=== PATIENT | female | born 1950 | race African-American/Black ===

== ENCOUNTER 2018-09-26 02:24 | Inpatient (IN) ==
--- NOTE | 2018-09-18 09:28 | EKG Report ---
Test Performed on : 09/18/2018 09:20:03 AM Test Reason : PAT Blood Pressure : / mmHG Vent. Rate : 052 BPM Atrial Rate : 052 BPM P-R Int : 218 ms QRS Dur : 082 ms QT Int : 440 ms P-R-T Axes : 055 000 060 degrees QTc Int : 409 ms Sinus bradycardia. with 1st degree AV block. Low voltage QRS Cannot rule out Anterior infarct , age undetermined Abnormal ECG When compared with ECG of 03-SEP-2015 09:50, SC interval has increased Unconfirmed Result
[2018-09-18 09:42] LABS: BASO# 0.01 X1000 (0.0-0.2); BASO% 0.2 % (0.0-0.8); EOS# 0.03 X1000 (0.0-0.7); EOS% 0.7 % (0.0-10.0); HEMATOCRIT 41.4 % (37.0-47.0); HEMOGLOBIN 13.3 g/dL (12.0-16.0); LYMPH# 1.26 X1000 (1.2-3.4); LYMPH% 30.2 % (20.5-51.1); MCH 27.2 PG (27-31); MCHC 32.1 g/dL (33-37); MCV 84.7 FL (81-99); MONO# 0.48 X1000 (0.11-0.59); MONO% 11.5 % (1.7-9.3); MPV 10.7 FL (7.4-10.4); NEUT# 2.39 X1000 (1.4-6.5); NEUT% 57.4 % (42.2-75.2); PLT 135 X1000 (130-400); RBC 4.89 XMIL (4.2-5.4); RDW 13.4 % (11.5-14.5); WBC 4.17 X1000 (4.8-10.8)
--- NOTE | 2018-09-18 09:53 | Diag Imaging Result Doc PS360 ---
EXAM: CHEST-2 VIEWS HISTORY: PAT TECHNIQUE: Chest two views COMPARISON: 09/03/2015 FINDINGS: The lungs are well expanded. The heart is not enlarged. The vessels are not distended. There are no infiltrates. No pleural effusions. IMPRESSION: No acute abnormality. Electronically signed by Bautista Lane 09/18/2018 9:50 AM
[2018-09-18 10:00] LABS: AGAP 8; ALB/GLOB RATIO 1.2; ALBUMIN 4.1 g/dL (3.5-5.0); ALKALINE PHOSPHATASE 84 U/L (32-104); BUN 13 mg/dL (8-22); CALCIUM 9.5 mg/dL (8.8-10.2); CHLORIDE 101 mmol/L (98-107); COSMO 280; CREATININE 0.9 mg/dL (0.5-0.9); ESTIMATED GFR > 60; GLUCOSE 147 mg/dL (70-104); GOT 22 U/L (10-30); GPT 29 U/L (10-36); POTASSIUM 4.1 mmol/L (3.5-5.1); SODIUM 139 mmol/L (136-145); TCO2 30 mmol/L (25-35); TOTAL PROTEIN 7.5 g/dL (6.3-8.3)
[2018-09-26] MEDS ORDERED: FENTANYL ONE (07:54)
[2018-09-26] MEDS ORDERED: DIPRIVAN 1% ONE (07:54)
[2018-09-26] MEDS ORDERED: QUELICIN (DOSE) ONE (07:55)
[2018-09-26] MEDS ORDERED: ROBINUL ONE ×2 (07:55→09:28)
[2018-09-26] MEDS ORDERED: XYLOCAINE-MPF 2% ONE (07:55)
[2018-09-26] MEDS ORDERED: LR 1,000 ML ONE (08:29)
[2018-09-26] MEDS ORDERED: ENTEREG ONE (08:29)
[2018-09-26] MEDS ORDERED: LOPRESSOR ONE (08:29)
[2018-09-26] MEDS ORDERED: VERSED ONE (08:40)
[2018-09-26] MEDS ORDERED: SODIUM CHLORIDE 0.9% 10 ML ONE (08:41)
[2018-09-26] MEDS ORDERED: MARCAINE 0.25% ONE (08:41)
[2018-09-26] MEDS ORDERED: EXPAREL 1.3% ONE (08:42)
[2018-09-26] MEDS ORDERED: MEFOXIN 1 GM/NS 1 GM/50 ML IVPB IV ONE (09:00)
[2018-09-26] MEDS ORDERED: FLAGYL 1000 MG/NS 1,000 MG/200 ML IVPB IV ONE (09:00)
[2018-09-26] MEDS ORDERED: ZOFRAN ONE (09:28)
[2018-09-26] MEDS ORDERED: NORCURON ONE (09:28)
[2018-09-26] MEDS ORDERED: STERILE WATER INJ. ONE (09:28)
[2018-09-26] MEDS ORDERED: NEOSTIGMINE ONE (09:33)
[2018-09-26] MEDS ORDERED: OFIRMEV 1000 MG/ISOTONIC SOLN 1,000 MG/100 ML BOTTLE ONE (09:39)
[2018-09-26] MEDS ORDERED: EPHEDRINE ONE (10:03)
[2018-09-26 10:07] LABS: URINE SOURCE CATH
[2018-09-26 10:14] LABS: BILIRUBIN URINE NEGATIVE (NEGATIVE); BLOOD URINE TRACE (NEGATIVE); COLOR YELLOW; GLUCOSE URINE NEGATIVE (NEGATIVE); KETONE URINE NEGATIVE (NEGATIVE); LEUKOCYTES URINE NEGATIVE (NEGATIVE); NITRITE URINE NEGATIVE (NEGATIVE); PH URINE 5.5; PROTEIN URINE NEGATIVE (NEGATIVE); SP GRAVITY URINE 1.015; TURBIDITY URINE HAZY (CLEAR); UR EPITHELIAL CELLS <10 /HPF (<10); URINE BACTERIA NEGATIVE /HPF; URINE RBC <10 /HPF (<10); URINE WBC <10 /HPF (<10); UROBILINOGEN URINE NORMAL (NORMAL)
[2018-09-26] MEDS: DILAUDID ONE ×2 (12:13→12:18)
[2018-09-26] MEDS ORDERED: ZOFRAN IV PRN (12:30)
[2018-09-26] MEDS ORDERED: BENADRYL IV PRN (12:30)
[2018-09-26] MEDS ORDERED: NARCAN 0.4 MG in LR 1,000 ML IV PRN (12:30)
[2018-09-26] MEDS ORDERED: NARCAN IV PRN (12:30)
[2018-09-26] MEDS ORDERED: SODIUM CHLORIDE 0.9% INJ PRN (12:30)
[2018-09-26] MEDS ORDERED: DILAUDID PCA VIAL IV PRN (12:30)
[2018-09-26] MEDS ORDERED: PHENERGAN IV PRN (12:30)
[2018-09-26] MEDS ORDERED: ATARAX PO PRN (12:30)
[2018-09-26] MEDS ORDERED: D5 1/2 NS 1,000 ML ONE (12:31)
--- NOTE | 2018-09-26 15:21 | OPERATIVE NOTE ---
PROCEDURE DATE: 09/26/2018 PREOPERATIVE DIAGNOSIS: Carcinoma of splenic flexure area. POSTOPERATIVE DIAGNOSIS: Carcinoma of hepatic flexure area. PROCEDURE: Exploratory laparotomy, adhesiolysis, mobilization of splenic flexure with subsequent finding of the tumor in the hepatic flexure area. Procedure is extended right colectomy with ileotransverse colostomy. DESCRIPTION OF PROCEDURE: The patient brought to the operating room. After satisfactory induction of IV and endotracheal anesthesia, athrombic TEDs, Landon catheter, and orogastric tubes were placed. Her abdomen was broadly prepped and draped in the appropriate manner for laparotomy. A midline xiphoid infraumbilical incision was taken sharply down through skin and subcutaneous tissue. The fascia was incised in the midline. The peritoneum was entered. Hemostasis was obtained by electrocautery. The viscera were packed medially away from the left side. The left colon was mobilized around the splenic flexure. There was a minimal amount of bleeding around the splenic flexure. Several of the short gastrics were ligated. There was no evidence of tattoo from the previous ink saurabh from the colon biopsy from several weeks ago. Proximal and distal exploration eventually showed the tattoo to be just distal to the hepatic flexure. The right colon was subsequently mobilized. There was a suspicious area just superior to the cecum. It was marked with a suture. The distal ileum was subsequently divided with a VANNESSA stapler. Mesenteric attachments were taken down with LigaSure instrument. The right colic vasculature was doubly tied with double 0 silk and suture ligated with 2-0 silk. The right colon was completely swept medially with exposure of the duodenum with no evidence of duodenal or pancreatic injury. The patient had previous cholecystectomy. Some of the adhesions in the gallbladder fossa were taken down sharply. The transverse colon was subsequently divided 5 to 6 cm distal to the ink saurabh, proximal to the middle colic vasculature. A gibr-eu-nohm VANNESSA anastomosis was subsequently performed. Subsequently closed off with a TA 40 stapler and the mesenteric defect closed with interrupted 2-0 silk. The anastomosis would admit the tip of 2 fingers. Once again, the splenic flexure area was explored. There was some further bleeding there but this was seen to be controlled by Surgicel gauze and pressure. It appeared not to be bleeding on completion of the procedure. After satisfactory accounting for all laparotomy sponges, the closure was subsequently initiated. The peritoneum was closed in a single running layer of #1 Vicryl. The fascia was closed with interrupted #1 Maxon. Subcutaneous was debrided and closed with 3-0 Vicryl and the skin itself with stainless steel clips. Sterile dressings were applied. Orogastric tube was removed as well as endotracheal tube. Landon catheter was left indwelling. The patient was extubated in the operating room and subsequently transferred to recovery. ESTIMATED BLOOD LOSS: 150-200 mL. No blood was transfused. She had approximately 2300 mL of IV crystalloid with 150-200 mL of urine output. cc: Eldon Lawton MD
[2018-09-26 15:27] LABS: HEMATOCRIT 40.9 % (37.0-47.0); HEMOGLOBIN 12.9 g/dL (12.0-16.0)
[2018-09-26] MEDS: MEFOXIN 1 GM/NS 1 GM/50 ML IVPB IV SCH (16:53)
[2018-09-26] MEDS: FLAGYL 1000 MG/NS 1,000 MG/200 ML IVPB IV SCH (17:43)
[2018-09-26] MEDS: XANAX PO SCH (21:28)
[2018-09-26] MEDS: LIPITOR PO SCH (21:28)
[2018-09-26] MEDS: LOPRESSOR PO SCH (21:28)
[2018-09-27] MEDS: D5 1/2 NS 1,000 ML IV SCH ×3 (01:29→16:00)
[2018-09-27] MEDS: MEFOXIN 1 GM/NS 1 GM/50 ML IVPB IV SCH ×2 (01:30→09:47)
[2018-09-27] MEDS: FLAGYL 1000 MG/NS 1,000 MG/200 ML IVPB IV SCH ×2 (02:08→11:19)
[2018-09-27] MEDS: SYNTHROID PO SCH (06:07)
[2018-09-27 07:09] LABS: EOS# 0.22 X1000 (0.0-0.7); EOS% 2.4 % (0.0-10.0); HEMATOCRIT 35.6 % (37.0-47.0); HEMOGLOBIN 11.4 g/dL (12.0-16.0); IMM GRAN# 0.04 X1000 (0.0-0.04); IMM GRAN% 0.4 % (0.0-0.5); LYMPH# 0.83 X1000 (1.2-3.4); MCV 84.4 FL (81-99); MONO# 0.98 X1000 (0.11-0.59); MONO% 10.6 % (1.7-9.3); MPV 11.2 FL (7.4-10.4); NEUT# 7.14 X1000 (1.4-6.5); NEUT% 77.6 % (42.2-75.2); PLT 126 X1000 (130-400); RBC 4.22 XMIL (4.2-5.4); RDW 13.3 % (11.5-14.5); WBC 9.21 X1000 (4.8-10.8)
--- NOTE | 2018-09-27 07:30 | EKG Report ---
Test Performed on : 09/27/2018 07:16:33 AM Test Reason : S/P COLON RESECTION Blood Pressure : / mmHG Vent. Rate : 072 BPM Atrial Rate : 072 BPM P-R Int : 208 ms QRS Dur : 078 ms QT Int : 388 ms P-R-T Axes : 048 -09 057 degrees QTc Int : 424 ms Normal sinus rhythm. Normal ECG When compared with ECG of 18-SEP-2018 09:20, No significant change was found Confirmed by Renan ALVA, Jaron ([id number]) on 09/27/2018 8:55:06 AM
[2018-09-27 07:33] LABS: AGAP 11; BUN 8 mg/dL (8-22); CALCIUM 8.3 mg/dL (8.8-10.2); CHLORIDE 105 mmol/L (98-107); COSMO 284; CREATININE 0.8 mg/dL (0.5-0.9); ESTIMATED GFR > 60; GLUCOSE 239 mg/dL (70-104); POTASSIUM 4.7 mmol/L (3.5-5.1); SODIUM 139 mmol/L (136-145); TCO2 23 mmol/L (25-35)
[2018-09-27] MEDS: LOPRESSOR PO SCH ×2 (09:47→22:02)
[2018-09-27] MEDS: ENTEREG PO SCH ×2 (09:47→22:02)
[2018-09-27] MEDS: COZAAR PO SCH (09:48)
[2018-09-27] MEDS: DILAUDID ONE (09:49)
[2018-09-27] MEDS: LR 1,000 ML IV SCH ×2 (09:50→18:29)
[2018-09-27] MEDS: XANAX PO SCH (22:02)
[2018-09-27] MEDS: LIPITOR PO SCH (22:03)
[2018-09-28] MEDS: SYNTHROID PO SCH (06:01)
[2018-09-28] MEDS: D5 1/2 NS 1,000 ML IV SCH ×3 (06:02→22:02)
[2018-09-28 07:03] LABS: BASO% 0.3 % (0.0-0.8); EOS% 0.7 % (0.0-10.0); HEMATOCRIT 34.5 % (37.0-47.0); HEMOGLOBIN 11.1 g/dL (12.0-16.0); IMM GRAN% 0.5 % (0.0-0.5); LYMPH% 10.8 % (20.5-51.1); MCH 27.5 PG (27-31); MCHC 32.2 g/dL (33-37); MCV 85.4 FL (81-99); NEUT% 74.7 % (42.2-75.2); PLT 108 X1000 (130-400); RBC 4.04 XMIL (4.2-5.4); RDW 13.4 % (11.5-14.5); WBC 7.44 X1000 (4.8-10.8)
[2018-09-28 07:04] LABS: BASO# 0.02 X1000 (0.0-0.2); EOS# 0.05 X1000 (0.0-0.7); IMM GRAN# 0.04 X1000 (0.0-0.04); MONO# 0.97 X1000 (0.11-0.59); NEUT# 5.56 X1000 (1.4-6.5)
[2018-09-28 07:08] LABS: AGAP 13; BUN 5 mg/dL (8-22); CALCIUM 8.7 mg/dL (8.8-10.2); CHLORIDE 105 mmol/L (98-107); COSMO 274; CREATININE 0.7 mg/dL (0.5-0.9); ESTIMATED GFR > 60; GLUCOSE 178 mg/dL (70-104); SODIUM 136 mmol/L (136-145); TCO2 18 mmol/L (25-35)
[2018-09-28] MEDS: ENTEREG PO SCH ×3 (07:51→22:00)
[2018-09-28] MEDS: LOVENOX SUBQ SCH (07:51)
[2018-09-28] MEDS: COZAAR PO SCH ×2 (07:51→09:27)
[2018-09-28] MEDS: LOPRESSOR PO SCH ×3 (07:51→22:00)
[2018-09-28] MEDS ORDERED: ZOFRAN IV PRN (16:59)
[2018-09-28] MEDS: XANAX PO SCH (22:00)
[2018-09-28] MEDS: NORCO-10 PO PRN (22:00)
[2018-09-28] MEDS: LIPITOR PO SCH (22:00)
[2018-09-29] MEDS: D5 1/2 NS 1,000 ML IV SCH ×3 (06:00→16:10)
[2018-09-29] MEDS: SYNTHROID PO SCH (06:05)
[2018-09-29] MEDS: LOVENOX SUBQ SCH (06:06)
[2018-09-29] MEDS: ENTEREG PO SCH ×2 (08:37→21:12)
[2018-09-29] MEDS: COZAAR PO SCH (08:37)
[2018-09-29] MEDS: LOPRESSOR PO SCH ×2 (08:38→21:12)
[2018-09-29] MEDS: NORCO-10 PO PRN ×2 (11:37→20:21)
[2018-09-29] MEDS: THERA M PLUS PO SCH (16:10)
[2018-09-29] MEDS: COLACE PO SCH ×2 (16:10→21:12)
[2018-09-29] MEDS: LIPITOR PO SCH (21:12)
[2018-09-29] MEDS: XANAX PO SCH (21:12)
[2018-09-30] MEDS: LOVENOX SUBQ SCH ×2 (05:14→05:59)
[2018-09-30] MEDS: NORCO-10 PO PRN ×3 (05:14→20:56)
[2018-09-30] MEDS: SYNTHROID PO SCH ×2 (05:59→06:00)
[2018-09-30] MEDS: ENTEREG PO SCH ×2 (08:23→20:55)
[2018-09-30] MEDS: COLACE PO SCH ×2 (08:23→20:56)
[2018-09-30] MEDS: LOPRESSOR PO SCH ×2 (08:23→20:56)
[2018-09-30] MEDS: THERA M PLUS PO SCH (08:23)
[2018-09-30] MEDS: COZAAR PO SCH (08:23)
[2018-09-30] MEDS: LIPITOR PO SCH (20:55)
[2018-09-30] MEDS: XANAX PO SCH (20:56)
[2018-09-30] MEDS: D5 1/2 NS 1,000 ML IV SCH (23:31)
[2018-10-01] MEDS: SYNTHROID PO SCH ×2 (05:30→06:16)
[2018-10-01] MEDS: LOVENOX SUBQ SCH ×2 (05:30→06:16)
[2018-10-01] MEDS: NORCO-10 PO PRN ×2 (05:40→11:14)
[2018-10-01] MEDS: ENTEREG PO SCH (11:13)
[2018-10-01] MEDS: COLACE PO SCH (11:13)
[2018-10-01] MEDS: THERA M PLUS PO SCH (11:13)
[2018-10-01] MEDS: LOPRESSOR PO SCH (11:14)
[2018-10-01] MEDS: COZAAR PO SCH (11:14)
[2018-10-01 11:56] VITALS: BP 118/73
--- NOTE | 2018-10-17 11:58 | DISCHARGE SUMMARY ---
ADMISSION DATE: 09/26/2018 DISCHARGE DATE: 10/01/2018 DIAGNOSIS: Adenocarcinoma of ascending colon. PROCEDURE PERFORMED: Right hemicolectomy. HOSPITAL COURSE: The patient is a 68-year-old, black female, admitted after colonoscopy revealed a lesion in her transverse colon. She underwent an outpatient mechanical and chemical bowel prep and was admitted on the day of surgery. At surgery, the tattooed lesion was seen in the hepatic flexure area. A standard right colectomy was performed with ileum being anastomosed to the transverse colon. Pathology revealed 3 to 4 positive lymph nodes, but no evidence of hepatic metastases. Hospitalization was largely uneventful. 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 This resolved on discontinuance of the REDUCTION FURNACE OPERATOR. Dietary advancements were well tolerated. She is subsequently allowed home on 10/01 on Colace, multivitamins, [place] and Zofran. She will be seen in the office in 1 week's time. cc: Eldon Lawton MD
== END 2018-10-01 14:51 | disposition home or self-care (01) | DRG 330 ==
LOC: SURHOLD 02:24 → 4N 08:28
PROVIDERS: ADMIT Surgery; ATTEND Surgery
CPT/HCPCS: 71020; 71046; 80048; 80053; 81001; 82948; 85014; 85018; 85025; 86850; 86900; 86901; 88309; 88313; 93005; 93010; 94761; 94799; A9270; C9290; J0131; J0330; J0694; J1170; J1650; J2250; J2405; J3010; J7120; S0020; S0030; XXXXX